=== PATIENT | male | born 1960 | race Caucasian/White ===

== ENCOUNTER 2022-04-21 08:40 | Inpatient (IN) | payer MEDICARE, OTHER ==
[~2022-04-21] VITALS: Ht 167.6 cm; Wt 108.2 kg
[2022-04-21] VITALS (12 sets, daily range): BP systolic 135–157; BP diastolic 66–83
[~2022-04-21 08:40] MED LIST: ALBU8HFA IH; AMLO-258 PO; ASPI-1450 PO; ATOR20TA65 PO; CARV3 PO; CLOP75TA60 PO; DAPA10TA PO; DUTA0.5C37 PO; FLUO20CA36 PO; FURO20 PO; GLIM4 PO; ICOS1CAP PO; LISI-894 PO; METF-1211 PO; OMEP20 PO; PROM25SU10 PR; SEMA1PEN3 SQ; SODIUM CHLORIDE 0.9% 1,000 ML IV ONE; TAMS-13 PO
[2022-04-21] MEDS ORDERED: ICOS1CAP PO (09:55)
[2022-04-21] MEDS ORDERED: HYDR25TA84 PO (09:55)
[2022-04-21] MEDS ORDERED: FLUNNS NASAL (09:55)
[2022-04-21] MEDS ORDERED: HYDR12.54 PO (09:55)
[2022-04-21] MEDS ORDERED: GLIM4 PO (09:55)
[2022-04-21] MEDS ORDERED: CLOP75TA60 PO (09:55)
[2022-04-21] MEDS ORDERED: DIAZEPAM 5 MG TABLET ONE (10:03)
[2022-04-21] MEDS ORDERED: SODIUM CHLORIDE 0.9% 1,000 ML ONE (10:03)
[2022-04-21] MEDS ORDERED: ASPIRIN 81 MG CHEWABLE TABLET ONE (10:04)
[2022-04-21] MEDS ORDERED: DiphenhydrAMINE HCL 50 MG CAPSULE ONE (10:04)
[2022-04-21] MEDS ORDERED: DIAZEPAM 5 MG TABLET PO ONE (10:30)
[2022-04-21] MEDS ORDERED: ASPIRIN 81 MG CHEWABLE TABLET PO ONE (10:30)
[2022-04-21] MEDS ORDERED: DiphenhydrAMINE HCL 50 MG CAPSULE PO ONE (10:30)
[2022-04-21 10:41] LABS: GLUCOMETER DEV NAME(LOC) SDS.; GLUCOSE,POINT OF CARE 141 MG/DL (70-110)
[2022-04-21] MEDS ORDERED: SODIUM BICARBONATE 50 MEQ/50 ML VIAL ONE (11:43)
[2022-04-21] MEDS ORDERED: LIDOCAINE/PF 1% 30 ML VIAL ONE (11:43)
[2022-04-21] MEDS ORDERED: IOHEXOL 300 MG/ML 100 ML VIAL ONE (11:43)
[2022-04-21] MEDS ORDERED: HEPARIN SODIUM 1000 UNITS/NS 1,000 ML ONE (11:43)
[2022-04-21] MEDS ORDERED: FentaNYL CITRATE PF 100 MCG/2 ML VIAL ONE (12:12)
[2022-04-21] MEDS ORDERED: MIDAZOLAM HCL 2 MG/2 ML VIAL ONE (12:13)
[2022-04-21] MEDS ORDERED: IOHEXOL 300 MG/ML 100 ML VIAL IARTER ONE (12:15)
[2022-04-21] MEDS ORDERED: MIDAZOLAM HCL 2 MG/2 ML VIAL IVP ONE (12:15)
[2022-04-21] MEDS ORDERED: HEPARIN SODIUM 1000 UNITS/NS 1,000 ML IARTER ONE (12:15)
[2022-04-21] MEDS ORDERED: FentaNYL CITRATE PF 100 MCG/2 ML VIAL IVP ONE (12:15)
[2022-04-21] MEDS ORDERED: LIDOCAINE 1% 30 ML/SOD BICARB 8.4% 4 ML SQ ONE (12:15)
[2022-04-21] MEDS ORDERED: CLOPIDOGREL BISULFATE 300 MG TABLET ONE (12:44)
[2022-04-21] MEDS ORDERED: HEPARIN SODIUM,PORCINE 1,000 UNITS/ML 10 ML VIAL IVP ONE (12:45)
[2022-04-21] MEDS ORDERED: CLOPIDOGREL BISULFATE 300 MG TABLET PO ONE (13:00)
[2022-04-21] MEDS ORDERED: HYDROCODONE/ACETAMINOPHEN 5-325 MG TABLET PO PRN (19:45)
[2022-04-21] MEDS ORDERED: ZOLPIDEM TARTRATE 5 MG TABLET PO PRN (19:45)
[2022-04-21] MEDS ORDERED: DEXTROSE 50%-WATER 25 GM/50 ML SYRINGE IVP PRN (19:45)
[2022-04-21] MEDS ORDERED: BISACODYL 10 MG RECTAL RECTAL SUPPOSITORY PR PRN (19:45)
[2022-04-21] MEDS ORDERED: MAGNESIUM HYDROXIDE SUSPENSION 30 ML UDCUP PO PRN (19:45)
[2022-04-21] MEDS ORDERED: INSULIN LISPRO 100 UNITS/ML SQ PRN (19:45)
[2022-04-21] MEDS ORDERED: ACETAMINOPHEN 325 MG TABLET PO PRN (19:45)
[2022-04-21] MEDS ORDERED: ONDANSETRON HCL 4 MG/2 ML VIAL IVP PRN (19:45)
[2022-04-21] MEDS ORDERED: MORPHINE SULFATE 2 MG/ML SYRINGE IVP PRN (19:45)
[2022-04-21] MEDS: DOCUSATE SODIUM 100 MG CAPSULE PO SCH (21:00)
[2022-04-22] VITALS: BP 126/73
[2022-04-22 04:09] VITALS: BP 120/58
[2022-04-22 06:12] LABS: GLUCOMETER DEV NAME(LOC) 5N.1C; GLUCOSE,POINT OF CARE 142 MG/DL (70-110)
[2022-04-22 06:42] LABS: BASOPHILS % (AUTO) 0.8 % (0.0-2.0); EOSINOPHILS % (AUTO) 4.4 % (1.0-6.0); HEMATOCRIT 39.9 % (41-53); HEMOGLOBIN 13.9 g/dL (13.5-17.5); LYMPHOCYTES % (AUTO) 17.3 % (22.0-44.0); MEAN CORPUSCULAR HEMOGLOBIN 29.1 pg (26.0-34.0); MEAN CORPUSCULAR HGB CONC 34.7 G/dL (31.0-37.0); MEAN CORPUSCULAR VOLUME 84 fL (80-100); MONOCYTES # (AUTO) 0.5 K/uL (0.1-1.0); MONOCYTES % (AUTO) 8.3 % (2.0-9.0); NEUTROPHILS # (AUTO) 3.8 K/uL (1.8-7.7); NEUTROPHILS % (AUTO) 69.2 % (40.0-70.0); PLATELET COUNT (AUTO) 217 K/uL (150-450); RED BLOOD CELL COUNT(AUTO) 4.77 MIL/uL (4.50-5.90); RED CELL DISTRIBUTION WIDTH 14.9 % (11.5-14.5)
[2022-04-22 06:55] LABS: ANION GAP 3 mmol/L (8-16); CALCIUM, TOTAL 8.4 mg/dL (8.8-10.5); CARBON DIOXIDE 33 mmol/L (22-29); CHLORIDE 103 mmol/L (98-107); GLUCOSE,RANDOM 107 mg/dL (70-110); SODIUM SERUM 139 mmol/L (136-145); UREA NITROGEN, BLOOD 18 mg/dL (7-18)
[2022-04-22 06:56] LABS: GLOMERULAR FILTR. RATE CALC > 60 mL/min (>60)
[2022-04-22 07:36] VITALS: BP 144/63
[2022-04-22] MEDS ORDERED: GLIMEPIRIDE 4 MG TABLET PO SCH (08:00)
[2022-04-22] MEDS: DOCUSATE SODIUM 100 MG CAPSULE PO SCH (08:14)
[2022-04-22] MEDS ORDERED: CLOPIDOGREL BISULFATE 75 MG TABLET PO SCH (09:00)
[2022-04-22] MEDS ORDERED: TAMSULOSIN HCL 0.4 MG CAPSULE PO SCH (09:00)
[2022-04-22] MEDS ORDERED: HEPARIN SODIUM,PORCINE 5,000 UNITS/ML VIAL SQ SCH (09:00)
[2022-04-22] MEDS ORDERED: AmLODIPine BESYLATE 10 MG TABLET PO SCH (09:00)
[2022-04-22] MEDS ORDERED: CARVEDILOL 3.125 MG TABLET PO SCH (09:00)
[2022-04-22] MEDS ORDERED: HydrALAZINE HCL 25 MG TABLET PO SCH (09:00)
[2022-04-22] MEDS ORDERED: PANTOPRAZOLE SODIUM 40 MG DR TABLET PO SCH (09:00)
[2022-04-22] MEDS ORDERED: ATORVASTATIN CALCIUM 20 MG TABLET PO SCH (09:00)
[2022-04-22] MEDS ORDERED: FUROSEMIDE 20 MG TABLET PO SCH (09:00)
[2022-04-22] MEDS ORDERED: LISINOPRIL 20 MG TABLET PO SCH (09:00)
[2022-04-22] MEDS ORDERED: ATOR20TA65 PO (09:45)
[2022-04-22] MEDS ORDERED: FURO20 PO (09:45)
[2022-04-22] MEDS ORDERED: HYDR25TA84 PO (09:45)
[2022-04-22] MEDS ORDERED: GLIM4 PO (09:45)
[2022-04-22] MEDS ORDERED: CLOP75TA60 PO (09:45)
[2022-04-22] MEDS ORDERED: TAMS-13 PO (09:45)
[2022-04-22] MEDS ORDERED: LISI-894 PO (09:45)
[2022-04-22] MEDS ORDERED: CARV3 PO (09:45)
== END 2022-04-22 12:08 | disposition home or self-care (01) | DRG 247 ==
LOC: CATHLAB 08:40 → 5S 16:31
PROVIDERS: ADMIT Internal Medicine Interventional Cardiology; ATTEND Internal Medicine Interventional Cardiology
PROC: 4A023N7 Measurement of Cardiac Sampling and Pressure, Left Heart, Percutaneous Approach (ICD-10-PCS; principal; 2022-04-21)
PROC: 027034Z Dilation of Coronary Artery, One Artery with Drug-eluting Intraluminal Device, Percutaneous Approach (ICD-10-PCS; 2022-04-21)
PROC: B2111ZZ Fluoroscopy of Multiple Coronary Arteries using Low Osmolar Contrast (ICD-10-PCS; 2022-04-21)
PROC: B41F1ZZ Fluoroscopy of Right Lower Extremity Arteries using Low Osmolar Contrast (ICD-10-PCS; 2022-04-21)
PROC: B41C1ZZ Fluoroscopy of Pelvic Arteries using Low Osmolar Contrast (ICD-10-PCS; 2022-04-21)
DX: I20.0 Unstable angina (principal); E11.9 Type 2 diabetes mellitus without complications; J45.909 Unspecified asthma, uncomplicated; E78.5 Hyperlipidemia, unspecified; N40.0 Benign prostatic hyperplasia without lower urinary tract symptoms; I11.0 Hypertensive heart disease with heart failure; I50.9 Heart failure, unspecified; Z79.02 Long term (current) use of antithrombotics/antiplatelets; Z95.5 Presence of coronary angioplasty implant and graft; Z79.84 Long term (current) use of oral hypoglycemic drugs; Z79.899 Other long term (current) drug therapy
CPT/HCPCS: 80048; 82962; 85025; 92920; 92928; 93005; J1644; J2250; J3010; J3490; J7030; Q9967; 36415-L1; 36415-TC